=== PATIENT | male | born 1945 | race Caucasian/White ===

== ENCOUNTER 2020-01-03 07:15 | Emergency (ER) | payer MEDICARE ==
[2020-01-03 07:19] VITALS: RESP 18; TEMP 98.5
[2020-01-03] MEDS ORDERED: KETOROLAC 60 MG/2 ML VIAL IM STA (07:34)
[2020-01-03] MEDS ORDERED: methylPREDNISolone SOD SUCCI 125 MG/2 ML VIAL IV STA (07:36)
--- NOTE | 2020-01-03 08:04 | ED ---
General Adult HPI - General Chief complaint: Back Pain/Injury Stated complaint: Lower back pain Time Seen by Provider: 01/03/20 07:15 Source: patient, RN notes reviewed, old records reviewed Mode of arrival: ambulatory Limitations: no limitations - History of Present Illness Initial comments: This is a 74-year-old male who presents to the emergency department stating that he may have injured his back 2 days ago while he was bringing a boat in to the dock. Patient states the pain is on the left side radiating down the left leg posteriorly. Patient states he lays still it doesn't hurt but if he goes to move it hurts from the back down his leg. Patient states years ago he had surgery on his back. Patient denies any recent trauma. Patient denies any abdominal pain. Patient denies any hematuria. Patient denies any other issues at this time. - Related Data Previous Rx's Medication Instructions Recorded predniSONE [Deltasone] 40 mg PO DAILY #8 tab 01/03/20 Allergies Allergy/AdvReac Type Severity Reaction Status Date / Time No Known Allergies Allergy Verified 01/03/20 07:19 Review of Systems ROS Statement: Those systems with pertinent positive or pertinent negative responses have been documented in the HPI. ROS Other: All systems not noted in ROS Statement are negative. Past Medical History Additional Past Medical History / Comment(s): back pain History of Any Multi-Drug Resistant Organisms: None Reported Past Surgical History: Back Surgery Past Psychological History: No Psychological Hx Reported Smoking Status: Current every day smoker Past Alcohol Use History: Daily Past Drug Use History: None Reported General Exam - General Exam Comments Initial Comments: GENERAL: Patient is well-developed and well-nourished. Patient is nontoxic and well- hydrated and is in mild distress. ENT: Neck is soft and supple. Moist mucous membranes. Neck has full range of motion without eliciting any pain. EYES: The sclera were anicteric and conjunctiva were pink and moist. Extraocular movements were intact and pupils were equal round and reactive to light. Eyelids were unremarkable. SKIN: Skin is clear with no lesions or rashes and otherwise unremarkable. NEUROLOGIC: Patient is alert and oriented x3. Cranial nerves II through XII are grossly intact. Motor and sensory are also intact. Normal speech, volume and content. Symmetrical smile. MUSCULOSKELETAL: Normal extremities with adequate strength and full range of motion. No lower extremity swelling or edema. No calf tenderness. Patient has positive straight leg test on the left. LYMPHATICS: No significant lymphadenopathy is noted PSYCHIATRIC: Normal psychiatric evaluation. Limitations: no limitations Course Vital Signs 01/03/20 07:17 Temperature 98.5 F Pulse Rate 65 Respiratory 18 Rate Blood Pressure 168/91 O2 Sat by Pulse 98 Oximetry Medical Decision Making - Medical Decision Making I went back and reevaluate the patient the patient was considerably more comfortable. Patient's lumbar spine showed a little facet arthropathy. No acute abnormality. Disposition Clinical Impression: Sciatica Disposition: HOME SELF-CARE Instructions (If sedation given, give patient instructions): Sciatica (ED) Prescriptions: predniSONE [Deltasone] 40 mg PO DAILY #8 tab Is patient prescribed a controlled substance at d/c from ED?: No Referrals: Chidi Rowe MD [Primary Care Provider] - 1-2 days Time of Disposition: 08:40
--- NOTE | 2020-01-03 08:09 | XR ---
Was 0 spine HISTORY: Low back pain 5 views lumbosacral spine Is a spinal curvature. Multilevel spondylosis is present. No evident spondylolysis. Loss of disc heig ht greatest at L4-5 and L5-S1 with associated vacuum phenomenon. Sclerosis present posterior elements . Lumbar vertebral bodies show preserved height, alignment, and bone mineralization. Surgical clips p resent right upper quadrant. IMPRESSION: Degenerative disc disease, facet arthropathy, spinal curvature.
[2020-01-03 08:54] VITALS: BP 150/90; PULSE 71
== END 2020-01-03 08:51 | disposition home or self-care (01) ==
LOC: EC 07:15
DX: M54.42 Lumbago with sciatica, left side (principal); F17.200 Nicotine dependence, unspecified, uncomplicated; X50.0XXA Overexertion from strenuous movement or load, initial encounter
CPT/HCPCS: 72110; 99284; 96372; 96374; J2930; J1885

== ENCOUNTER → 2021-07-13 | Outpatient (CLI) | payer MEDICARE ==
--- NOTE | 2021-07-13 13:56 | CT ---
EXAMINATION TYPE: CT abdomen pelvis w con DATE OF EXAM: 07/13/2021 COMPARISON: NONE HISTORY: 75-year-old male R63.4,Abnormal weight loss TECHNIQUE: Contiguous axial scanning of the abdomen and pelvis following administration of 100 ml Iso geneva 300 IV contrast. Delayed images through the kidneys and coronal/sagittal reconstructions perform ed. CT DLP: 435.20 mGycm Automated exposure control for dose reduction was used. FINDINGS: Heart normal size without pericardial effusion. Mild patchy subpleural reticular changes in the visua lized lower lungs could reflect sequela of a recent COVID pneumonia. Clinically correlate. No pleural effusion. No focal liver lesion or biliary ductal dilatation. Cholecystectomy clips. Portal venous system is pa tent. There is mild fold thickening along the gastric fundus and proximal body. Cholecystectomy clips. Adrenal glands, spleen, and pancreas within normal limits. Scattered renal cortical cysts measuring up to 1.3 cm on the right and 1.6 cm on the left. 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 No dilated small bowel, free fluid, or free air. No mesenteric or retroperitoneal lymphadenopathy. Oral contrast progressed to the mid transverse colon. There is moderate stool burden. Some sigmoid di verticulosis. No pericolonic inflammatory change clearly identified. Bladder partially distended. Prostate gland measures 4.3 cm wide. There is nodular enhancement situat ed within the superior aspect of the left paramedian osteophyte measuring 1.2 cm, axial image 74. No abnormal fluid collection in the pelvis or pelvic lymphadenopathy seen. Bones: Moderate degenerative change of both hips. Sclerotic focus right side of the sacrum, axial tee ge 58. Additional prominent sclerosis within the lower lumbar spine and lumbosacral junction appears to be centered about the endplates suggesting Modic type III degenerative endplate change. Hypertroph ic facet arthropathy. Trace grade 1 anterolisthesis L4-L5. IMPRESSION: 1. SOME MILD PATCHY SUBPLEURAL RETICULAR CHANGE IN THE VISUALIZED LOWER LUNGS. CORRELATE FOR POSSIBLE SEQUELA OF A RECENT COVID PNEUMONIA. 2. MILD FOCAL THICKENING ALONG THE GASTRIC FUNDUS AND PROXIMAL BODY COULD REPRESENT GASTRITIS. CLINIC ALLY CORRELATE. 3. NODULAR, 1.2 CM ENHANCEMENT SUPERIOR ASPECT OF THE LEFT PARAMEDIAN PROSTATE GLAND. CORRELATE WITH PSA VALUES AND ULTRASOUND INDICATED TO EXCLUDE PROSTATE CANCER. NONSPECIFIC SCLEROTIC FOCUS RIGHT SIDE OF THE SACRUM COULD REPRESENT A BONE ISLAND. AGAIN, CORRELATE WITH PSA VALUES. 4. 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 5. SIGMOID DIVERTICULOSIS WITHOUT ACUTE DIVERTICULITIS.
== END | disposition home or self-care (01) ==
LOC: RADCTMAIN 09:15
PROVIDERS: ATTEND Family Medicine
DX: K63.89 Other specified diseases of intestine (principal); K57.30 Diverticulosis of large intestine without perforation or abscess without bleeding; N42.89 Other specified disorders of prostate; I71.4 Abdominal aortic aneurysm, without rupture
CPT/HCPCS: 82565; 84520; 74177; 36415; Q9967 ×2

== ENCOUNTER → 2021-08-17 | Outpatient (CLI) | payer MEDICARE ==
--- NOTE | 2021-08-17 21:28 | US ---
EXAMINATION TYPE: US prostate transrectal DATE OF EXAM: 08/17/2021 COMPARISON: CT abdomen and pelvis July 13, 2021 CLINICAL HISTORY: R19.09 PROSTATE MASS. Mass seen on recent CT This examination was performed using the transrectal probe. EXAM MEASUREMENTS: Gland Size: 4.1 x 2.7 x 3.9cm Volume: 23.0ml Predicted PSA: 2.75 Actual PSA (if available):1.2 in 2019 Initial images show femoral vesicles appear symmetric and within normal limits. Heterogeneous normal size prostate gland is identified without suspicious hypoechoic nodule seen on ultrasound. IMPRESSION: As above. Predicted PSA = volume x 0.12 ng/ml Calculated Volume = 0.5236 x L x W x H
== END | disposition home or self-care (01) ==
LOC: RADUSWWP 08:07
PROVIDERS: ATTEND Family Medicine
DX: R19.09 Other intra-abdominal and pelvic swelling, mass and lump (principal)
CPT/HCPCS: 76872